=== PATIENT | female | born 1965 | race Caucasian/White ===

== ENCOUNTER → 2016-07-01 | Outpatient (CLI) | payer BC, OTHER ==
[~2016-07-01] MED LIST: CONRAY-43 43% 50ML VIAL (Q9960) As Ordered ONE
--- NOTE | 2016-07-01 10:03 | REP ---
MR ARTHROGRAM RIGHT HIP: HISTORY: Right hip pain, labral tear. COMPARISON STUDIES: Comparison MR imaging November 23, 2015. TECHNIQUE: Precontrast imaging includes coronal T1- and T2-weighted scans of both hips. Postcontrast small field of view high resolution axial, coronal and sagittal images are acquired in T1- and T2-weighted scans with fat saturation. MR ARTHROGRAPHIC FINDINGS: Pre-injection MR imaging reveals a normal cortical and medullary bone signal intensity in the proximal femurs bilaterally. There is no evidence of avascular necrosis. There is a small bone island in the femoral head on the left. No significant hip joint effusion is seen. There is some T2 hyperintensity in the periarticular and debora trochanteric soft tissues adjacent the greater trochanter on the right consistent with peritrochanteric tendonitis or bursitis. There are similar but less pronounced changes on the left. No evidence of intrapelvic mass or adenopathy. No abdominal wall defect seen. Normal appearing right inguinal lymph nodes are seen. Post injection imaging shows good filling and enhancement of the right hip articulation. The ligamentum teres is intact. No loose body is seen. There is injected contrast undermining the base of the superior labral articular cartilage consistent with a nondisplaced labral tear. Head and neck junction morphology is normal. No other significant finding. IMPRESSION: Findings consistent with nondisplaced tear superior labrum. There is increased signal on T2-weighted scans in the peritrochanteric soft tissues adjacent to the greater trochanter consistent with tendonitis and/or bursitis as well. No other significant finding. Signed by Weston Ortiz MD 07/01/2016 02:38 P
--- NOTE | 2016-07-01 18:14 | REP ---
RIGHT HIP ARTHROGRAM: The procedure was performed under the direct supervision of Dr. Ortiz. The benefits and risks including but not limited to pain, infection, bleeding, and anaphylaxis were explained to the patient and informed consent was obtained. The right femoral neck was localized using fluoroscopic guidance. The skin was prepped and draped in a sterile fashion. 1% Lidocaine was used a local anesthetic. Using fluoroscopic guidance a 22-gauge spinal needle was inserted and then advanced into the femoral neck. 0.5 mL of Conray-43 was injected to verify placement. 11 mL of a solution containing 20 mL of sterile saline and 0.15 mL of ProHance was injected. The needle was then removed. The patient tolerated the procedure well and there were no immediate complications. 2 second of fluoroscopic time was utilized for this procedure. Reviewed by KARLA Clemente 07/04/2016 05:09 PEdited and Signed by Weston Ortiz MD 07/04/2016 05:12 P
== END ==
LOC: M RADPRO 06:58
PROVIDERS: ATTEND Orthopaedic Surgery
DX: M24.151 Other articular cartilage disorders, right hip (principal)
CPT/HCPCS: 27093; 73723; 77002; A9576; Q9960

== ENCOUNTER 2018-10-10 17:21 | Emergency (ER) | payer BC, OTHER ==
[~2018-10-10] VITALS: Ht 165.1 cm; Wt 77.7 kg
[2018-10-10] MEDS ORDERED: CYCL10TA (17:39)
[2018-10-10] MEDS ORDERED: LATU80TA (17:39)
[2018-10-10] MEDS ORDERED: ROSU5TAB4 (17:39)
[2018-10-10] MEDS ORDERED: LEVO88TA3 (17:39)
[2018-10-10] MEDS ORDERED: MONT10TA2 (17:39)
[2018-10-10] MEDS ORDERED: GABA600T4 (17:39)
[2018-10-10] MEDS ORDERED: FLUTISP (17:39)
[2018-10-10] MEDS ORDERED: VENL150C43 (17:39)
[2018-10-10] MEDS ORDERED: MELO15TA28 (17:39)
[2018-10-10] MEDS ORDERED: IBUPROFEN 600 MG TAB PO ONE (18:30)
[2018-10-10] MEDS ORDERED: CARISOPRODOL 350 MG TAB PO ONE (18:30)
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
[2018-10-10 19:39] VITALS: BP 136/64
== END 2018-10-10 19:48 | disposition home or self-care (01) ==
LOC: M ED 17:21
DX: S29.012A Strain of muscle and tendon of back wall of thorax, initial encounter (principal); S16.1XXA Strain of muscle, fascia and tendon at neck level, initial encounter; V43.52XA Car driver injured in collision with other type car in traffic accident, initial encounter; Y92.9 Unspecified place or not applicable; Y93.9 Activity, unspecified; Y99.9 Unspecified external cause status; M43.22 Fusion of spine, cervical region; M47.812 Spondylosis without myelopathy or radiculopathy, cervical region; J30.2 Other seasonal allergic rhinitis; Z79.899 Other long term (current) drug therapy

== ENCOUNTER → 2022-05-19 | Outpatient (CLI) | payer BC, OTHER ==
[~2022-05-19] MED LIST changes: -CONRAY-43 43% 50ML VIAL (Q9960) As Ordered ONE; +CYCL-707; +FLUTISP; +GABA600T4; +LATU80TA2; +LEVO88TA3; +MELO15TA28; +MONT10TA97; +ROSU5TAB5; +VENL150C43
== END ==
LOC: M SOG 09:09
PROVIDERS: ATTEND Orthopaedic Surgery Hand Surgery
DX: M19.042 Primary osteoarthritis, left hand (principal)

== ENCOUNTER 2022-11-28 17:04 | Emergency (ER) | payer OTHER, BC ==
[~2022-11-28] VITALS: Ht 167.6 cm; Wt 64.8 kg
[~2022-11-28 17:04] MED LIST changes: +FLUT50SP17; -FLUTISP
[2022-11-28 17:12] VITALS: TEMP 98.4
[2022-11-28 17:57] LABS: BASO % 0.7 % (0.0-1.0); HEMATOCRIT 40.5 % (36.0-47.0); HEMOGLOBIN 13.1 g/dl (12.0-15.5); LYMPH # 1.9 10^3/uL (1.5-5.0); LYMPH % 31.2 % (24.0-44.0); MEAN CORPUSCULAR HEMOGLOBIN 29.3 pg (27.0-33.0); MEAN CORPUSCULAR HGB CONC 32.3 g/dl (32.0-36.5); MEAN CORPUSCULAR VOLUME 90.6 fl (80.0-96.0); MONO # 0.6 10^3/uL (0.0-0.8); MONO % 9.6 % (2.0-8.0); NEUTROPHILS # 3.6 10^3/uL (1.5-8.5); NEUTROPHILS % 58.3 % (36.0-66.0); PLATELET COUNT, AUTOMATED 234 10^3/uL (150-450); RED BLOOD COUNT 4.47 10^6/uL (4.00-5.40); WHITE BLOOD COUNT 6.1 10^3/uL (4.0-10.0)
[2022-11-28 18:10] LABS: APPEARANCE, URINE CLEAR (CLEAR); BACTERIA, URINE AUTO NEGATIVE (NEGATIVE); BILIRUBIN, URINE AUTO NEGATIVE (NEGATIVE); BLOOD, URINE BLOOD NEGATIVE (NEGATIVE); COLOR, URINE STRAW (YELLOW); GLUCOSE, URINE (UA) AUTO NEGATIVE (NEGATIVE); KETONE, URINE AUTO NEGATIVE (NEGATIVE); LEUKOCYTE ESTERASE, URINE AUTO NEGATIVE (NEGATIVE); NITRITE, URINE AUTO NEGATIVE (NEGATIVE); PROTEIN, URINE AUTO NEGATIVE (NEGATIVE); RBC, URINE AUTO 0 /HPF (0-3); SPECIFIC GRAVITY URINE AUTO 1.004 (1.002-1.035); SQUAMOUS EPITHELIAL CELL UR AU 0 /HPF (0-6); UROBILINOGEN, URINE AUTO 0.2 mg/dL (0.0-2.0); WBC, URINE AUTO 0 /HPF (0-3)
[2022-11-28 18:27] LABS: LIPASE 64 U/L (12-53)
[2022-11-28 18:28] LABS: AMYLASE 79 U/L (30-118)
[2022-11-28 18:30] LABS: ALBUMIN 4.3 G/DL (3.2-5.2); ALKALINE PHOSPHATASE 65 U/L (46-116); ALT/SGPT 34 U/L (7.0-40); AST/SGOT 19 U/L (<34); BILIRUBIN,DIRECT < 0.1 MG/DL (<0.4); BILIRUBIN,TOTAL 0.2 MG/DL (0.3-1.2); BLOOD UREA NITROGEN 13 MG/DL (9-23); CARBON DIOXIDE LEVEL 24 MMOL/L (20-31); CHLORIDE LEVEL 108 MMOL/L (98-107); CREATININE FOR GFR 0.77 MG/DL (0.55-1.30); GLOMERULAR FILTRATION RATE > 60.0 (>51); GLUCOSE, FASTING 98 MG/DL (60-100); POTASSIUM SERUM 4.2 MMOL/L (3.5-5.1); SODIUM LEVEL 144 MMOL/L (136-145); TOTAL PROTEIN 6.6 G/DL (5.7-8.2)
[2022-11-28 18:40] LABS: AMPHETAMINES LEVEL URINE NEGATIVE (NEGATIVE); BENZODIAZEPINES URINE NEGATIVE (NEGATIVE); PHENCYCLIDINE URINE NEGATIVE (NEGATIVE)
[2022-11-28 18:41] LABS: BARBITURATES URINE NEGATIVE (NEGATIVE); CANNABINOIDS URINE NEGATIVE (NEGATIVE); COCAINE METABOLITE URINE NEGATIVE (NEGATIVE); METHADONE URINE NEGATIVE (NEGATIVE); OPIATES URINE NEGATIVE (NEGATIVE)
[2022-11-28 19:00] VITALS: BP 120/62
[2022-11-28 19:30] VITALS: O2SAT 99
[2022-11-28 19:34] LABS: RSV AMPLIFICATION NEGATIVE (NEGATIVE)
[2022-11-28 19:43] LABS: INR 0.97; PROTHROMBIN TIME 13.1 SECONDS (12.5-14.5)
[2022-11-28 19:44] LABS: PARTIAL THROMBOPLASTIN TIME 23.9 SECONDS (24.8-34.2)
== END 2022-11-28 20:17 | disposition home or self-care (01) ==
LOC: M ED 17:04 → EDBD 17:04 → M ED 20:17
DX: F10.10 Alcohol abuse, uncomplicated (principal); V49.40XA Driver injured in collision with unspecified motor vehicles in traffic accident, initial encounter; I10 Essential (primary) hypertension; E03.9 Hypothyroidism, unspecified; Z86.73 Personal history of transient ischemic attack (TIA), and cerebral infarction without residual deficits; Z91.09 Other allergy status, other than to drugs and biological substances; Z79.891 Long term (current) use of opiate analgesic; Z79.899 Other long term (current) drug therapy

== ENCOUNTER → 2023-07-11 | Outpatient (REF) | payer OTHER, BC ==
[~2023-07-11] MED LIST changes: -FLUT50SP17; +FLUTISP
== END ==
LOC: M LAB REF 16:37
PROVIDERS: ATTEND Surgery
DX: L72.0 Epidermal cyst (principal)

== ENCOUNTER 2024-03-06 12:02 | Day surgery (SDC) | payer BC ==
[~2024-03-06] VITALS: Ht 165.1 cm; Wt 66.8 kg
[~2024-03-06 12:02] MED LIST changes: +BACI1TAB20 PO; +BIOT1CAP2 PO; +BUPR1TAB52 PO; +CLON1TAB8 PO; -CYCL-707; +CYCL-707 PO; +ESTR1CAP2 PO; +FLAX1CAP5 PO; +GABA-1490 PO; -GABA600T4; +IRON27TA2 PO; -LATU80TA2; +LATU80TA2 PO; +LEVO125T4 PO; +MELA5TAB21 PO; -MELO15TA28; +MELO15TA28 PO; -MONT10TA97; +MONT10TA97 PO; +MULTTAB61 PO; +PROG1CAP8 PO; +QC F0.52 PO; +ROSU5TAB40 PO; -ROSU5TAB5; +TRAZ-252 PO; -VENL150C43; +VENL150C43 PO; +VITA100093 PO
[2024-03-06] MEDS ORDERED: LR 1,000 ML IV SCH (12:35)
[2024-03-06 12:49] LABS: HEMATOCRIT 41.2 % (36.0-47.0); HEMOGLOBIN 13.7 g/dl (12.0-15.5); MEAN CORPUSCULAR HGB CONC 33.3 g/dl (32.0-36.5); MEAN CORPUSCULAR VOLUME 90.4 fl (80.0-96.0); PLATELET COUNT, AUTOMATED 235 10^3/uL (150-450); RED BLOOD COUNT 4.56 10^6/uL (4.00-5.40); WHITE BLOOD COUNT 7.5 10^3/uL (4.0-10.0)
[2024-03-06] MEDS ORDERED: LIDOCAINE 2% 100MG/5ML SDV (FOR ANES.) As Ordered ONE (13:30)
[2024-03-06] MEDS ORDERED: ONDANSETRON 4MG 2ML VIAL As Ordered ONE (13:30)
[2024-03-06] MEDS ORDERED: fentaNYL 100 MCG/2 ML INJECTION As Ordered ONE (13:30)
[2024-03-06] MEDS ORDERED: KETOROLAC 60MG 2ML VIAL As Ordered ONE (13:30)
[2024-03-06] MEDS ORDERED: ACETAMINOPHEN 1000MG 100ML IV BAG As Ordered ONE (13:30)
[2024-03-06] MEDS ORDERED: MIDAZOLAM INJ 2MG/2ML VIAL As Ordered ONE (13:30)
[2024-03-06] MEDS ORDERED: propofoL 200 MG/20 ML VIAL As Ordered ONE (13:33)
[2024-03-06] MEDS: SCOPOLAMINE 1MG TRANSDERMAL PATCH TOP ONE (13:47)
[2024-03-06] MEDS ORDERED: fentaNYL 100 MCG/2 ML INJECTION IV PRN (14:45)
[2024-03-06] MEDS ORDERED: oxyCODONE 5MG TAB PO PRN (14:45)
[2024-03-06] MEDS ORDERED: ONDANSETRON 4MG 2ML VIAL IV PRN (14:45)
[2024-03-06] MEDS ORDERED: MORPHINE 2 MG/ML 1ML VIAL IV PRN (14:45)
[2024-03-06] MEDS ORDERED: PERCOCET 5MG/325MG TAB PO PRN (15:20)
[2024-03-06 15:45] VITALS: BP 107/53; TEMP 98.3; O2SAT 94
[2024-03-06] MEDS ORDERED: IBUPROFEN 600MG TAB PO SCH (18:00)
== END 2024-03-06 16:17 | disposition home or self-care (01) ==
LOC: M SDC 12:02
PROVIDERS: ATTEND Obstetrics & Gynecology
DX: N95.0 Postmenopausal bleeding (principal); N85.2 Hypertrophy of uterus; N85.6 Intrauterine synechiae; Z98.51 Tubal ligation status; D64.9 Anemia, unspecified; E03.9 Hypothyroidism, unspecified; E78.00 Pure hypercholesterolemia, unspecified; Z79.899 Other long term (current) drug therapy; Z79.890 Hormone replacement therapy; F84.0 Autistic disorder
CPT/HCPCS: 36415; 58558; 85027; 86850; 86900; 86901; J0131; J1100; J1885; J2250; J2405; J3010

== ENCOUNTER 2024-04-03 08:12 | Day surgery (SDC) | payer BC ==
[~2024-04-03] VITALS: Ht 165.1 cm; Wt 66.7 kg
[~2024-04-03 08:12] MED LIST changes: +ACETAMINOPHEN *IV* 1,000 MG in IV 0 EA IV ONE
[2024-04-03] MEDS ORDERED: NS 1,000 ML IV SCH (08:20)
[2024-04-03] MEDS ORDERED: LR 1,000 ML IV SCH ×2 (08:20→11:25)
[2024-04-03] MEDS ORDERED: HYDROmorphone HCL 2MG/ML 1ML VIAL As Ordered ONE (08:34)
[2024-04-03] MEDS ORDERED: ONDANSETRON 4MG 2ML VIAL As Ordered ONE (08:35)
[2024-04-03] MEDS ORDERED: ACETAMINOPHEN 1000MG 100ML IV BAG As Ordered ONE (08:35)
[2024-04-03] MEDS ORDERED: MIDAZOLAM INJ 2MG/2ML VIAL As Ordered ONE (08:35)
[2024-04-03] MEDS ORDERED: fentaNYL 100 MCG/2 ML INJECTION As Ordered ONE (08:35)
[2024-04-03] MEDS ORDERED: propofoL 200 MG/20 ML VIAL As Ordered ONE (08:36)
[2024-04-03] MEDS ORDERED: LIDOCAINE 2% 100MG/5ML SDV (FOR ANES.) As Ordered ONE (08:36)
[2024-04-03] MEDS ORDERED: SUGAMMADEX SODIUM 500 MG/5 ML VIAL (BRIDION) As Ordered ONE (08:36)
[2024-04-03] MEDS ORDERED: ROCURONIUM BROMIDE 50MG/5ML VIAL As Ordered ONE (08:36)
[2024-04-03 09:34] LABS: HEMATOCRIT 39.6 % (36.0-47.0); HEMOGLOBIN 13.2 g/dl (12.0-15.5); MEAN CORPUSCULAR HEMOGLOBIN 30.3 pg (27.0-33.0); MEAN CORPUSCULAR HGB CONC 33.3 g/dl (32.0-36.5); PLATELET COUNT, AUTOMATED 201 10^3/uL (150-450); RED BLOOD COUNT 4.35 10^6/uL (4.00-5.40); WHITE BLOOD COUNT 5.8 10^3/uL (4.0-10.0)
[2024-04-03] MEDS: SCOPOLAMINE 1MG TRANSDERMAL PATCH TOP ONE (09:35)
[2024-04-03] MEDS ORDERED: PERC5TAB12 PO (09:36)
[2024-04-03] MEDS: ceFAZolin SOD 2 GM in IV 1 EA IV ONE (09:55)
[2024-04-03 10:08] LABS: BLOOD UREA NITROGEN 14 MG/DL (9-23); CALCIUM LEVEL 9.1 MG/DL (8.5-10.1); CARBON DIOXIDE LEVEL 28 MMOL/L (20-31); CHLORIDE LEVEL 109 MMOL/L (98-107); GLOMERULAR FILTRATION RATE > 60.0 (>51); GLUCOSE, FASTING 99 MG/DL (60-100); POTASSIUM SERUM 4.7 MMOL/L (3.5-5.1); SODIUM LEVEL 139 MMOL/L (136-145)
[2024-04-03] MEDS ORDERED: ePHEDrine SULFATE 25 MG/5 ML(5MG/ML) SYRINGE As Ordered ONE (10:35)
[2024-04-03] MEDS ORDERED: PHENYLephrine 500MCG 5ML (100MCG/ML) SYRINGE As Ordered ONE (10:35)
[2024-04-03] MEDS: FLUORESCEIN 10% (100MG/ML) 5ML VIAL As Ordered ONE (11:15)
[2024-04-03] MEDS ORDERED: diphenhydrAMINE 50MG/ML VIAL IV PRN (11:25)
[2024-04-03] MEDS ORDERED: fentaNYL 100 MCG/2 ML INJECTION IV PRN (11:25)
[2024-04-03] MEDS ORDERED: MEPERIDINE 25 MG/ML 1ML VIAL IV PRN (11:25)
[2024-04-03] MEDS ORDERED: METOCLOPRAMIDE INJ 10MG/2ML VIAL IV PRN (11:25)
[2024-04-03] MEDS ORDERED: ONDANSETRON 4MG 2ML VIAL IV PRN (11:25)
[2024-04-03] MEDS ORDERED: HYDROMORPHONE HCL 0.5 MG/ 0.5 ML SYRINGE IV PRN (11:25)
[2024-04-03] MEDS: oxyCODONE 5MG TAB PO PRN (11:49)
[2024-04-03 13:31] VITALS: BP 111/63; TEMP 98; O2SAT 96
== END 2024-04-03 14:00 | disposition home or self-care (01) ==
LOC: M SDC 08:12
PROVIDERS: ATTEND Obstetrics & Gynecology
DX: N95.0 Postmenopausal bleeding (principal); N85.6 Intrauterine synechiae; N73.6 Female pelvic peritoneal adhesions (postinfective); D25.2 Subserosal leiomyoma of uterus; J30.2 Other seasonal allergic rhinitis; E78.5 Hyperlipidemia, unspecified; E03.9 Hypothyroidism, unspecified; D64.9 Anemia, unspecified; F31.9 Bipolar disorder, unspecified; F84.0 Autistic disorder; F32.A Depression, unspecified; Z79.899 Other long term (current) drug therapy
CPT/HCPCS: 36415; 49329; 58571; 80048; 85027; 86850; 86900; 86901; 88307; 93005; J0131; J0665; J0690; J1100; J1171; J2250; J2371; J2405; J3010; S2900